=== PATIENT | male | born 2005 | race Caucasian/White ===

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

== ENCOUNTER 2024-01-09 11:37 | Emergency (ER) | payer OTHER, SELFPAY ==
[2024-01-09 11:40] VITALS: BP 161/81; PULSE 61; RESP 16; TEMP 37.2; O2SAT 100
--- NOTE | 2024-01-09 11:46 | ED.GENADUL_ITS ---
Discharge Plan Disposition Patient Disposition: Home Discharge Details Clinical Impression: Tick bite, Contact dermatitis Primary Care Provider: Diana Ontiveros ED Provider: Zion Conrad Home Meds and New Rx's Prescriptions: New prednisone 10 mg tablet See Taper PO DIRECTED Qty: 31 0RF Taper: Prednisone 10mg taper 40 mg Daily for 3 Days and 0 Hour 30 mg Daily for 3 Days and 0 Hour 20 mg Daily for 3 Days and 0 Hour 10 mg Daily for 3 Days and 0 Hour 5 mg Daily for 3 Days and 0 Hour Rx Instructions: see taper instructions TAPER: 40 mg daily for 3 Days; 30 mg daily for 3 Days; 20 mg daily for 3 Days; 10 mg daily for 3 Days; 5 mg daily for 3 Days Discharge Instructions Instructions: Contact dermatitis Additional Instructions: Please feel free to return if you have any new or significant worsening of symptoms. Please take steroid as prescribed but if you have significant side effects you may stop without tapering within the first 4 days otherwise you will need to taper your dose down. Follow-up with your primary care provider if not improving Referrals: Diana Ontiveros, [employer] CLAIM EXAMINER [Primary Care Provider] - (As needed for reassessment) Discharge Data Discharge Date/Time-TO BE ENTERED AT DEPARTURE: 01/09/24 12:23 HPI General Mode of arrival: ambulatory . Date/Time Provider Initiated Documentation: 01/09/24 11:45 . Limitations to Documentation: no limitations . Information obtained by: patient and RN notes reviewed . History of Present Illness 18 year old M presents to the emergency department with the chief complaint of Tick bite, itchy rash, described as moderate, and is localized to the head. Patient started experiencing this day(s) (3) and it has been constant. No relieving factors improve symptom(s), Patient notes no other symptoms.. Patient did receive the following treatments prior to arrival, none Related Data Home Medications ?Medication ?Instructions ?Recorded ?Confirmed prednisone 10 mg tablet See Taper PO DIRECTED #31 tabs 01/09/24 Previous Rx's ?Medication ?Instructions ?Recorded prednisone 10 mg tablet See Taper PO DIRECTED #31 tabs 01/09/24 Allergies Allergy/AdvReac Type Severity Reaction Status Date / Time No Known Allergies Allergy Verified 01/09/24 11:44 General Stated Complaint: RashLesion CYNDY: 3 Review of Systems Constitutional Constitutional: Denies body ache(s), Denies fever(s) and Denies headache(s) ENT Ears, Nose, Mouth, and Throat: Denies headache(s) Musculoskeletal Musculoskeletal: Denies myalgias, Denies arthralgias and Denies joint swelling Integumentary/Breasts Skin/Breast: Reports as per HPI, Reports pruritus and Reports rash Neurologic Neurologic: Denies headache(s) and Denies paresthesias Exam Const General: cooperative and comfortable Orientation: alert and awake HENAK Head: normal to inspection, normocephalic and atraumatic General nose exam: external nose normal Face and sinus: normal facial exam Mouth: oral mucosae normal, lip normal, tongue normal and no audible dysphonia Resp Effort & Inspection: normal respiratory effort and able to speak in complete sentences Skin Rashes: rashes noted maculopapular rash diffuse face arrangement clustered Course Vital Signs Vital signs: Vital Signs Temperature 37.2 C 01/09/24 11:40 Pulse 61 01/09/24 11:40 Respiratory Rate 16 01/09/24 11:40 Blood Pressure 161/81 H 01/09/24 11:40 Pulse Oximetry 100 01/09/24 11:40 Temperature 37.2 C 01/09/24 11:40 Pulse 61 01/09/24 11:40 Respiratory Rate 16 01/09/24 11:40 Blood Pressure 161/81 H 01/09/24 11:40 Pulse Oximetry 100 01/09/24 11:40 Pain Level 7 01/09/24 11:40 Medical Decision Making Patient presenting to the emergency department for 2 separate complaints. 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 He has been using [id number] me dications which have moderately helped but rashes present around eyes, on face, on ears, on lateral and anterior neck, and some on his upper forearms. Separately then this morning patient noted an embedded tick in the back of his neck. Patient denies fever chills myalgias difficulty breathing swallowing or other symptoms. Physical exam does show an embedded tick to the back of the neck which was removed by catering staff member no erythema margins or other rash noted. Secondary rash appears consistent with contact dermatitis also consistent with patient's story. Will give patient single dose of doxycycline for tick bite and placed patient on steroids due to multiple areas of contact dermatitis. No other findings to suggest life-threatening rash and patient is otherwise stable. After discussion of diagnosis and plan of care patient has no further needs, questions, or concerns and states clear understanding to return to the emergency department for any worsening symptoms. This documentation was generated using mGenerator dictation system, please disregard any oddities of phrase or misspellings. Quality:SDOH Health Related Social Needs: No Data to Display PFSH All Active Problems Contact dermatitis (Acute) Tick bite (Acute) Normal weight, pediatric, BMI 5th to 84th percentile for age (Acute 11/25/16) Nocturnal enuresis (Acute 10/24/15) Learning problem (Acute 10/24/15) has iep - doing very well Medical History Left knee sprain Constipation Esotropia Nocturnal enuresis Surgical History Circumcision Family History Mother Patient's mother is MVA Father No problems noted. Social History Smoking/Tobacco Use Status: Never Smoking risk assessment performed?: Yes Alcohol Intake: never Drug use: Never Substance use type: does not use Housing: apartment Pets and animals: No Current gender identity: male What type of physical activity do you participate in: other Details: baseball, basketball, football, skiing Seatbelt use: always Helmet use: Yes Helmet use: sometimes Water heater temp set <120 deg: Yes Fire extinguisher in home: Yes Carbon monox detector in home: Yes Firearms in home: No Do you feel safe at home: Yes Do you feel safe in your relationship?: Yes
[2024-01-09] MEDS: Doxycycline Hyclate 100 MG CAP 200 MG PO (12:06)
--- OUTSIDE RECORDS SUMMARY | 2024-01-09 19:39 | XMS_ITS | Clinical Summary ---
Author Organization [facility] Address [address] [place] [address] Care Team Providers Care Termite Treater Name Role Phone None, Provider Primary Care Provider Unavailabl e Allergies No known active allergies Medications No known medications Social History Tobacco Use Types Packs/Day Years Used Date Smoking Tobacco: Never Assessed Sex and Gender Information Value Date Recorded Sex Assigned at Not on file Gender Identity Not on file Sexual Orientation Not on file Growth Chart Information Age Height Weight Hlgnlo-[id number]-[id number] th Percentile BMI Percentile Head Circum Head Circum Percentile Date 17 years 182.9 cm (6') 90.7 kg (200 lb) 90.82%* 2022 * CDC (Boys, 2-20 Years) Last Filed Vital Signs Vital Sign Reading Time Taken Comments Blood Pressure 122/70 09/18/2022 1026 EDT Pulse 90 09/18/2022 1026 EDT Temperature 36.8 ??C (98.2 ??F) 09/18/2022 1026 EDT Respiratory Rate 15 09/18/2022 1026 EDT Oxygen Saturation 99% 09/18/2022 1026 EDT Inhaled Oxygen Concentration - - Weight 90.7 kg (200 lb) 09/18/2022 1026 EDT Height 182.9 cm (6') 09/18/2022 1026 EDT Body Mass Index 27.12 09/18/2022 1026 EDT Body Mass Index Percentile 90.82% 09/18/2022 102 6 EDT Growth Chart: CDC (Boys, 2-2 0 Years) Plan of Treatment Health Maintenance Due Date Last Done Comments Hepatitis C Screen 2004 COVID-19 Vaccine ( - 2022-24 season) 2023 Hepatitis B Vaccine (1 of 3 - 19+ 3-dose series) 08/26 Care Teams Termite Treater Relationship Specialty Start Date End Date None, Provider PCP - General 09/18/22
--- OUTSIDE RECORDS SUMMARY | 2024-01-09 19:39 | XMS_ITS | Referral Summary ---
Author Organization [facility] Address [address] [place] [address] Care Team Providers Care Staff Nurse Icu Resource Team Name Role Phone None, Provider Primary Care Provider Unavailabl e Allergies No known active allergies Medications No known medications Social History Tobacco Use Types Packs/Day Years Used Date Smoking Tobacco: Never Assessed Sex and Gender Information Value Date Recorded Sex Assigned at Not on file Gender Identity Not on file Sexual Orientation Not on file Last Filed Vital Signs Vital Sign Reading [...] 90.82% 09/18/2022 102 6 EDT Growth Chart: [facility] (Boys, 2-2 0 Years) Plan of Treatment Not on file Care Teams Staff Nurse Icu Resource Team Relationship Specialty Start Date End Date None, Provider PCP - General 09/18/22
--- OUTSIDE RECORDS SUMMARY | 2024-01-09 19:39 | XMS_ITS | Encounter Summary ---
Author Organization [facility] Address [address] [place] [address] Care Team Providers Care Technical Programs Manager Name Role Phone None, Provider Primary Care Provider Unavailabl e Reason for Visit * Reason Comments Shoulder Pain Right shoulder pain and fingers tingling for 2 weeks. Injury unknown. Encounter Details Date Type Department Care Team (Late st Contact Info) Description 09/18/2022 10:20 EDT [facility] [address] [place] [address] [place] [address] Cecily Romero PA-C [address] [place] [address] Acute pain of right shoulder (Primary Dx) Social History Tobacco Use Types Packs/Day Years Used Date Smoking Tobacco: Never Assessed Sex and Gender Information Value Date Recorded Sex Assigned at Not on file Gender Identity Not on file Sexual Orientation Not on file documented as of this encounter Last Filed Vital Signs Vital Sign Reading [...] Growth Chart: CDC (Boys, 2-2 0 Years) documented in this encounter Patient Instructions * Patient Instructions* Cecily Romero PA-C - 09/18/2022 10:20 EDT Muscle tightness in the upper back and right shoulder likely secondary to lifting heavy weights, tightness in muscles around the shoulder and upper back. Decrease or stop lifting for next two weeks. Do stretches of upper chest and back. Take ibuprofen 400 mg two or three times per day. When feelingimproved gradually increase your exercise routine, but continue stretching. If not improving physical therapy would be the next step to help with pin pointing source of discomfort and alleviating it. * Attachments The following attachments cannot be sent through Care Everywhere. * Shoulder Pain (Estonian) * Upper Back: Exercises (Estonian) documented in this encounter Progress Notes * Cecily Romero PA-C - 09/18/2022 1020 EDT Images from the original note were not included. Subjective: Patient ID: Tripp Horvath is an 17 y.o. male. Chief Complaint: Right shoulder pain Tripp is an otherwise healthy 17 yo who is currently at [employer]. He is here today with c/o right shoulder pain for two weeks. Pain is most bothersome at night. Is in deltoid region, radiates towards elbow. No trauma or injury. He does lift weights six days per week. He has not had any limitation inhis ability to do regular daily activities. Discomfort and tingling in fingers most bothersome at night when he is trying to sleep. No neck pain. No weakness or loss of ROM. Review of Systems Constitutional: Negative. HENT: Negative. Respiratory: Negative. Cardiovascular: Negative. Musculoskeletal: Negative for joint swelling, neck pain and neck stiffness. See hpi Objective: BP 122/70 Pulse 90 Temp 36.8 ??C (98.2 ??F) Resp 15 Ht 182.9 cm (72) Wt 90.7 kg (200 lb) SpO2 99% BMI 27.12 kg/m?? No current outpatient medications on file. No current facility-administered medications for this visit. No Known Allergies No past medical history on file. No past surgical history on file. No family history on file. Physical Exam Vitals and nursing note reviewed. Constitutional: General: He is not in acute distress. Appearance: He is well-developed and well-nourished. Neck: Comments: No c spine tenderness Cardiovascular: Rate and Rhythm: Normal rate and regular rhythm. Pulmonary: Effort: Pulmonary effort is normal. No respiratory distress. Breath sounds: Normal breath sounds. Musculoskeletal: Right shoulder: No swelling, deformity or tenderness. Normal range of motion. Normal strength. Normal pulse. Left shoulder: Normal. Cervical back: Normal, normal range of motion and neck supple. Thoracic back: No swelling, spasms or bony tenderness. Normal range of motion. Back: Assessment and Plan: 1. Acute pain of right shoulder No worrisome abnormal findings on exam of the right shoulder, neck and upper back. He is heavily muscled and has some tenderness of the paraspinal and trapezius muscles in the right upper back. Otherwise normal ROM of the shoulder, no sign of cervical radiculopathy. He is advised rest, ice, ibuprofen and stretching. No heavy lifting for next couple of weeks. If improving he can then return to gradually to his exercise routine. If not improving he should return or try going directly to Physical Therapy for further evaluation and treatment. Procedures Coding I have reviewed the provider's instructions with the patient, answering all questions to his satisfaction. 09/18/2022 10:44 documented in this encounter Plan of Treatment Not on file documented as of this encounter Visit Diagnoses Diagnosis Acute pain of right shoulder- Primary documented in this encounter Care Teams Technical Programs Manager Relationship Specialty Start Date End Date None, Provider PCP - General 09/18/22 documented as of this encounter
== END 2024-01-09 12:23 | disposition home or self-care (01) ==
LOC: ER 19:37
PROVIDERS: Emergency Provider Nurse Practitioner Family; PCP Nurse Practitioner Family
DX: L29.9 Pruritus, unspecified (principal); L25.9 Unspecified contact dermatitis, unspecified cause
CPT/HCPCS: 99283